=== PATIENT | male | born 1975 | race Caucasian/White ===

== ENCOUNTER → 2021-07-01 | Day surgery (SDC) | payer OTHER ==
[~2021-07-01] VITALS: Ht 185.4 cm; Wt 76.2 kg
[~2021-07-01] MED LIST: ZYRTEC10 M3 PO
== END | disposition home or self-care (01) ==
LOC: FAS 08:59
DX: K92.1 Melena (principal); K58.9 Irritable bowel syndrome, unspecified; Z79.899 Other long term (current) drug therapy
CPT/HCPCS: J1610; J2250; J2704; J7120